=== PATIENT | female | born 1960 | race Caucasian/White ===

== ENCOUNTER → 2017-07-19 | Outpatient (CLI) | payer MEDICARE, MEDICAID ==
--- NOTE | 2017-07-19 13:17 | RADIOLOGY REPORT (SQ) ---
EXAM DESCRIPTION: MRI LT LOWER JOINT WITHOUT COMPLETED DATE/TIME: 07/19/2017 9:14 am REASON FOR STUDY: M23.92 UNSPECIFIED INTERNAL DERANGEMENT OF LEFT KNEE M23.92 UNSPECIFIED INTERNAL DERANGEMENT OF LEFT KNEE COMPARISON: None. TECHNIQUE: Leftknee images acquired and stored on PACS. Multiplanar images include fat sensitive se quences as T1, water sensitive sequences as FST2 or STIR, cartilage sensitive sequences as FSPD, and gradient echo sequences. LIMITATIONS: Motion. FINDINGS: JOINT AND BURSAE: Small effusion. BONE CORTEX AND MARROW: Well-circumscribed geographic abnormal signal lateral subchondral femoral con dyle with serpiginous low T1 signal margins and normal central T1 signal typical of AVN/ infarct. La teral femoral condylar lesion involves most of the posterior half of the articular surface. No adjac ent edema. Much smaller, similar appearing lesions in the medial femoral condyle and medial tibial p lateau subchondral bone. ACL: Intact. No degeneration or ganglion cyst. PCL: Intact. MCL: Intact. No periligamentous edema or fluid. LCL: Intact. No periligamentous edema or fluid. MEDIAL MENISCUS: Attenuated with medial migration. High signal posterior horn extending to the artic ular surface in the horizontal plane. LATERAL MENISCUS: Intact. MEDIAL COMPARTMENT: Cartilage thinning. Mild -moderate osteophytes. LATERAL COMPARTMENT: Cartilage thinning. No significant osteophytes. PATELLA: Cartilage thinning. Mild subchondral cyst formation in the patella near the midline. Intac t retinaculum. EXTENSOR MECHANISM: Intact. Quadriceps and patella tendons normal. SOFT TISSUES: Small Mcfadden's cyst. OTHER: No other significant finding. IMPRESSION: 1. Bone infarcts. No evidence of acute AVN. 2. Osteoarthritis medial and patellofemoral compartments. 3. Horizontal tear posterior horn medial meniscus. 4. Small Mcfadden's cyst. TECHNICAL DOCUMENTATION: JOB ID: [id number] [employer]- All Rights Reserved Reading location - IP/workstation name: [email or web address]
== END ==
LOC: RAD 08:09
PROVIDERS: ATTEND Physician Assistant
DX: M23.92 Unspecified internal derangement of left knee (principal); M17.12 Unilateral primary osteoarthritis, left knee

== ENCOUNTER → 2017-11-08 | Outpatient (CLI) | payer MEDICARE, MEDICAID ==
--- NOTE | 2017-11-08 13:07 | RADIOLOGY REPORT (SQ) ---
EXAM DESCRIPTION: VENOUS UNILATERAL LOWER COMPLETED DATE/TIME: 11/08/2017 12:28 pm REASON FOR STUDY: LLEV SWELLING R60.0 LOCALIZED EDEMA COMPARISON: None. TECHNIQUE: Dynamic and static ramirez scale and color images acquired of the left leg venous system. Se lected spectral images acquired with additional compression and augmentation maneuvers. The contralat eral common femoral vein and saphenofemoral junction were also imaged. Images stored on PACS. LIMITATIONS: Obesity, limited visualization of the peroneal veins, left calf FINDINGS: LEFT COMMON FEMORAL: Normal phasicity, compression and augmentation. No visualized echogenic material on g ray scale. No defects on color images. FEMORAL: Normal compression and augmentation. No visualized echogenic material on ramirez scale. No defe cts on color images. POPLITEAL: Normal compression, augmentation. No visualized echogenic material on ramirez scale. No defec ts on color images. CALF VESSELS: Normal compression, augmentation. No visualized echogenic material on ramirez scale. No de fects on color images. GSV and SSV: Normal compression, augmentation. No visualized echogenic material on ramirez scale. No def ects on color images. ANY DEEP VENOUS INSUFFICIENCY: Not evaluated. ANY EVIDENCE OF POPLITEAL CYST: No. OTHER: No other significant finding. RIGHT COMMON FEMORAL VEIN AND SAPHENOFEMORAL JUNCTION: Normal phasicity, compression and augmentation. No visualized echogenic material on ramirez scale. No de fects on color images. IMPRESSION: NO EVIDENCE OF DVT OR SVT IN THE LEFT LEG. TECHNICAL DOCUMENTATION: JOB ID: [id number] [employer]- All Rights Reserved Reading location - IP/workstation name: [email or web address]
== END ==
LOC: SP 09:59
PROVIDERS: ATTEND Physician Assistant
DX: R60.0 Localized edema (principal)
CPT/HCPCS: 93971

== ENCOUNTER 2018-02-09 06:16 | Emergency (ER) | payer MEDICARE, MEDICAID ==
[2018-02-09 06:25] VITALS: BP 180/103
[2018-02-09] MEDS ORDERED: DIPHENHYDRAMINE HCL 50 MG/ML VIAL IV ONE (06:33)
[2018-02-09] MEDS ORDERED: FAMOTIDINE INJ/PF 20 MG/2 ML SDV IV ONE (06:33)
[2018-02-09] MEDS ORDERED: METHYLPREDNISOLONE INJ 125 MG/2 ML SDV IV ONE (06:33)
[2018-02-09] MEDS ORDERED: NORMAL SALINE 1000 ML 1,000 ML IV ONE (06:34)
--- NOTE | 2018-02-09 06:44 | ER Document Report ---
ED General - General Chief Complaint: Lip Swelling Stated Complaint: LIP SWELLING Time Seen by Provider: 02/09/18 06:33 TRAVEL OUTSIDE OF THE [place] IN LAST 30 DAYS: No - HPI Notes: Patient coming in for evaluation of lower lip swelling. Patient states recently was seen by her primary care physician thought she had a dental infection and was prescribed clindamycin and has an appointment to see a dentist. Patient states she took 4 clindamycin's yesterday. Patient workup of the lower lip swelling. Patient also is on carvedilol lisinopril and oxycodone for chronic pain. Patient also complains of some nausea and some vomiting. Patient states that she is not taking oxycodone the last 3 days. Patient denies any difficulty breathing was able to speak in complete sentences tolerating her secretions no drooling no signs of any respiratory compromise at this time. - Related Data Allergies/Adverse Reactions: No Known Allergies Allergy (Unverified 07/31/12 00:53) Past Medical History - Social History Smoking Status: Unknown if Ever Smoked Family History: Reviewed & Not Pertinent - Past Medical History Cardiac Medical History: Reports: Hx Hypercholesterolemia, Hx Hypertension Psychiatric Medical History: Reports: Hx Anxiety, Hx Bipolar Disorder, Hx Depression - Immunizations Hx Diphtheria, Pertussis, Tetanus Vaccination: Yes Review of Systems - Review of Systems Constitutional: No symptoms reported EENT: Other - Lip swelling Cardiovascular: No symptoms reported Respiratory: No symptoms reported Gastrointestinal: Nausea, Vomiting Genitourinary: No symptoms reported Female Genitourinary: No symptoms reported Musculoskeletal: No symptoms reported Skin: No symptoms reported Hematologic/Lymphatic: No symptoms reported Neurological/Psychological: No symptoms reported -: Yes All other systems reviewed and negative Physical Exam - Vital signs Vitals: Temp Pulse Resp BP Pulse Ox 98.4 F 79 20 180/103 H 97 02/09/18 06:18 02/09/18 06:18 02/09/18 06:18 02/09/18 06:18 02/09/18 06:18 Interpretation: Normal - General General appearance: Appears well, Alert - HEENT Head: Normocephalic, Atraumatic Eyes: Normal Conjunctiva: Normal Cornea: Normal Extraocular movements intact: Yes Pupils: PERRL Nasal: Normal Mouth/Lips: Other - No dental abscess left lower lip swelling consistent with mild angioedema. Posterior pharynx is otherwise clear patient has diffuse dental disease however I do not see any signs of gingival cellulitis no signs of a active infection at this time. Pharynx: Normal Neck: Normal - Respiratory Respiratory status: No respiratory distress Chest status: Nontender Breath sounds: Normal Chest palpation: Normal - Cardiovascular Rhythm: Regular Heart sounds: Normal auscultation Murmur: No - Abdominal Inspection: Normal Distension: No distension Bowel sounds: Normal Tenderness: Nontender Organomegaly: No organomegaly - Back Back: Normal, Nontender - Extremities General upper extremity: Normal inspection, Nontender, Normal color, Normal ROM , Normal temperature General lower extremity: Normal inspection, Nontender, Normal color, Normal ROM , Normal temperature, Normal weight bearing. No: Ian's sign - Neurological Neuro grossly intact: Yes Cognition: Normal Orientation: AAOx4 [place] Coma Scale Eye Opening: Spontaneous Jessica Coma Scale Verbal: Oriented Jessica Coma Scale Motor: Obeys Commands [place] Coma Scale Total: 15 Speech: Normal Motor strength normal: LUE, RUE, LLE, RLE Sensory: Normal - Psychological Associated symptoms: Normal affect, Normal mood - Skin Skin Temperature: Warm Skin Moisture: Dry Skin Color: Normal Course - Re-evaluation Re-evalutation: 02/09/18 06:43 Patient looks to have angioedema with her list of medications more likely from lisinopril. Patient did recently just take clindamycin for infection. There is no hives no other indications of an acute allergic reaction on phonation this is more likely angioedema from lisinopril. Reviewed patient's past medical history does have a visit to a local PCP for localized edema although this is otherwise nonspecific and can be seen. We will go ahead and treat patient with Benadryl 5 Medrol and Pepcid. Monitor the patient for progression. 02/09/18 08:42 Patient was monitored now for over 2 hours with no progression of the swelling. No signs of hypoxia no signs of acute restaurant distress. Limitations are consistent with any signs of infection at this time the patient was placed on clindamycin. Because this is new patient took yesterday with initial onset of lip swelling will go ahead and change the patient's clindamycin to the penicillin although my thoughts are that likely is angioedema from the patient' s lisinopril. Also have patient hold lisinopril start patient on amlodipine. Patient will follow up with her primary care physician - Vital Signs Vital signs: Temp Pulse Resp BP Pulse Ox 98.4 F 79 20 180/103 H 97 02/09/18 06:18 02/09/18 06:18 02/09/18 06:18 02/09/18 06:18 02/09/18 06:18 - Laboratory Result Diagrams: 02/09/18 06:56 02/09/18 06:56 Laboratory results interpreted by me: 02/09/18 02/09/18 06:56 06:56 WBC 15.4 H Absolute Neutrophils 11.1 H Glucose 191 H Discharge - Discharge Clinical Impression: Lip swelling Condition: Good Disposition: HOME, SELF-CARE Instructions: Acute Allergic Reaction ([facility]), Angioedema ([facility]) Additional Instructions: I recommend to continue to take Benadryl 25 mg every 6 hours please take the steroids as prescribed. I believe that your symptoms today are because by your blood pressure medication lisinopril. I would recommend stop taking lisinopril please take the amlodipine as prescribed. Because I cannot totally rule out a possible allergic reaction to the clindamycin would recommend we switch her clindamycin to penicillin at this time. Follow-up with your primary care physician Prescriptions: Amlodipine Besylate [Norvasc 5 mg Tablet] 5 mg PO DAILY #30 tablet Diphenhydramine HCl [Benadryl 25 mg Capsule] 25 mg PO Q6 #30 capsule Penicillin V Potassium [Penicillin Vk 500 mg Tablet] 500 mg PO BID #20 tablet Prednisone [Deltasone] 40 mg PO DAILY 4 Days tablet Referrals: ROSENDO BAE PA-C [NO LOCAL MD] - Follow up in 3-5 days
[2018-02-09 07:13] LABS: ABSOLUTE BASOPHILS # (AUTO) 0.2 10^3/uL (0.0-0.2); ABSOLUTE EOSINOPHILS # (AUTO) 0.3 10^3/uL (0.0-0.6); ABSOLUTE LYMPHOCYTES (AUTO) 2.8 10^3/uL (0.5-4.7); ABSOLUTE NEUT (AUTO) 11.1 10^3/uL (1.7-8.2); BASOPHILS % (AUTO) 1.1 % (0-2); EOSINOPHILS % (AUTO) 2.2 % (0-6); HEMOGLOBIN 14.8 g/dL (12.0-15.5); LYMPHOCYTES % (AUTO) 18.2 % (13-45); MEAN CORPUSCULAR HEMOGLOBIN 31.1 pg (27.0-33.4); MEAN CORPUSCULAR HGB CONC 33.7 g/dL (32.0-36.0); MEAN CORPUSCULAR VOLUME 92 fl (80-97); MONOCYTES % (AUTO) 6.3 % (3-13); PLATELET COUNT 296 10^3/uL (150-450); RED BLOOD COUNT 4.76 10^6/uL (3.72-5.28); RED CELL DISTRIBUTION WIDTH 13.9 % (11.5-14.0); SEGMENTED NEUTROPHILS % (AUTO) 72.2 % (42-78); TOTAL CELLS COUNTED % (AUTO) 100 %; WHITE BLOOD COUNT 15.4 10^3/uL (4.0-10.5)
[2018-02-09 07:23] LABS: ANION GAP 15 (5-19); BLOOD UREA NITROGEN 9 mg/dL (7-20); CALCIUM 9.9 mg/dL (8.4-10.2); CARBON DIOXIDE 28 mmol/L (22-30); CHLORIDE 100 mmol/L (98-107); GLUCOSE 191 mg/dL (75-110); POTASSIUM 4.4 mmol/L (3.6-5.0); SODIUM 142.6 mmol/L (137-145)
[2018-02-09] MEDS ORDERED: KETOROLAC TROMETHAMINE INJ/PF 30 MG/1 ML SDV IV ONE (08:52)
[2018-02-09] MEDS ORDERED: PREDNISONE 20 MG TABLET PO ONE (08:53)
[2018-02-09] MEDS ORDERED: PENICILLIN V POTASSIUM 500 MG TABLET PO ONE (08:53)
== END 2018-02-09 09:25 | disposition home or self-care (01) ==
LOC: ER 06:16
DX: T78.3XXA Angioneurotic edema, initial encounter (principal); R11.2 Nausea with vomiting, unspecified; X58.XXXA Exposure to other specified factors, initial encounter; G89.29 Other chronic pain; E78.00 Pure hypercholesterolemia, unspecified; I10 Essential (primary) hypertension
CPT/HCPCS: 99283; 96374; 96375; 36415; 85025; 80048; J1200; J2930; J1885; A9270 ×2; J7030; S0028; J7512